=== PATIENT | male | born 1990 | race Caucasian/White ===

== ENCOUNTER 2024-12-13 10:26 | Emergency (ER) | payer MEDICAID ==
[~2024-12-13] VITALS: Ht 172.7 cm; Wt 60.1 kg
[2024-12-13 10:32] VITALS: TEMP 97.6
[2024-12-13 11:00] LABS: MEAN PLATELET VOLUME 6.9 FL (7.4-10.4); RED CELL DISTRIBUTION WIDTH 13.8 % (11.5-14.5)
[2024-12-13 11:17] LABS: CREATININE 0.76 MG/DL (0.60-1.10); TOTAL CARBON DIOXIDE 31.1 MMOL/L (24-32); eCRCL 119 ML/MIN; eGFR > 90 ML/MIN
[2024-12-13 13:00] LABS: LEUKOCYTE ESTERASE ,URINE NEGATIVE (Neg); NITRITES, URINE NEGATIVE (Neg); OCCULT BLOOD,URINE NEGATIVE (Neg)
[2024-12-13 13:01] LABS: UA COLLECTION TYPE CLN CATCH MIDSTREAM
--- NOTE | 2024-12-13 13:18 | Physician Documentation ---
History of Present Illness ~ Chief Complaint: Rectal Pain Stated Complaint: ABCESS Time Seen by MD: 12:29 Mode of Arrival: POV HPI 34-year-old male presents to the ED with concerns of over a perirectal abscess. He states he had it drained in an urgent care today however they were concerned by the smell that he may have stool in the abscess. They wanted him to come to the ER to be evaluated for sepsis and a perirectal abscess. Patient is otherwise healthy. Day of Onset: Dec 13, 2024 Medication Reconciliation Allergies: Coded Allergies: No Known Allergies (Unverified , 12/13/24) Review of Systems All Other Systems at this time: Reviewed and Negative ROS As stated above in the HPI, otherwise all systems are reviewed and negative. Physical Exam Vital Signs: Temperature: 97.6, Source: Temporal, Heart Rate: 83, Respiratory Rate: 18, BP: 151/64, Pulse Oximetry: 98, Weight: 60.100 Physical Exam General: Alert, no apparent distress. Extremities: Normal range of motion, no deformity. Notable abscess it has been draining in the right perineal region Neurologic: Oriented x4. Psychiatric: Normal mood and affect. Skin: Normal color, warm and dry. No edema, no ecchymosis. Procedures Procedures I performed additional I and D of the perirectal abscess. As there was no packing in a was not clear if the loculation occurred at the prior I and D ID loculated there was notable blood drainage however I did not make note of any further purulent discharge. A pack both incisions with quarter-inch packing patient tolerated procedure well. Ultrasound Date: Dec 13, 2024 Progress Results/Orders Results/Orders Orders - MARCUS LUQUE CODER Ct Abdomen Pelvis (12/13/24 13:47) Laceration/I&D Tray Set Up (12/13/24 ) Completed Orders - MARCUS LUQUE CODER Ct Abdomen Pelvis (12/13/24 13:47) Iohexol 300mg/Ml 100ml Inj. (Omnipaque-3 (12/13/24 13:30) Lidocaine 1% W/Epi 1:100,000 (Xylocaine (12/13/24 14:30) Vital Signs 12/13/24 12/13/24 12/13/24 10:32 12:58 15:48 Temp 97.6 Pulse 83 67 67 Resp 18 18 20 B/P (MAP) 151/64 112/80 (91) 119/86 (97) Pulse Ox 98 95 96 O2 Flow Rate 0 0 Laboratory Tests Test 12/13/24 10:54 12/13/24 12:49 White Blood Count 12.3 H Red Blood Count 4.77 Hemoglobin 14.4 Hematocrit 43.0 Mean Corpuscular Volume 90.2 Mean Corpuscular Hemoglobin 30.3 Mean Corpuscular Hemoglobin Concent 33.6 Red Cell Distribution Width 13.8 Platelet Count 245 Mean Platelet Volume 6.9 L Neutrophils (%) (Auto) 77.7 H Lymphocytes (%) (Auto) 13.3 L Monocytes (%) (Auto) 7.6 Eosinophils (%) (Auto) 1.0 Basophils (%) (Auto) 0.4 Neutrophils # (Auto) 9.6 H Lymphocytes # (Auto) 1.6 Monocytes # (Auto) 0.9 Eosinophils # (Auto) 0.1 Basophils # (Auto) 0.0 CBC Comment Sodium Level 138 Potassium Level 4.3 Chloride Level 100 Carbon Dioxide Level 31.1 Anion Gap 7 L Blood Urea Nitrogen 17 Creatinine 0.76 Estimated GFR/1.73 m2 > 90 BUN/Creatinine Ratio 22.4 H Glucose Level 117 H Lactic Acid Level 0.8 Calcium Level 8.7 Albumin 3.7 Procalcitonin < 0.05 Chemistry Comments Urine Specimen Description Cln catch midstream Urine Color Straw Urine Clarity Clear Urine pH 6.5 Urine Specific [place] <=1.005 Urine Protein Negative Urine Glucose (UA) Negative Urine Ketones Negative Urine Occult Blood Negative Urine Nitrite Negative Urine Bilirubin Negative Urine Urobilinogen 0.2 Urine Leukocyte Esterase Negative Urine Culture Indicated Not ind Volume Urine Centrifuged 10 ml Urine Comment Microbiology Date/Time Source Procedure Growth Status 12/13/24 10:58 Blood Arm Left Blood Culture - Preliminary NEGATIVE (LESS THAN 24 HOURS) Resulted Medical Decision Making Additional information obtaine: old records, N/A Findings This patient tolerated the 2nd I and D well I felt it prudent to pack the abscess for ongoing drainage. He will continue taking antibiotics and follow up accordingly Diff Dx GI Bleed:Consideration: Unlikely: AE fistula, Angiodysplasia, Bleeding diathesis, Blood loss anemia, Carcinoma, Diverticulosis, Diverticulitis, Esophageal varicies, Esophagitis, Gastritis, Gastroenteritis, Inflammatory BD, Luana-Merida syndrome, Meckel's diverticulum, PUD, Other Diff Dx Pain:Considerations: Include: AAA, Angina/NE, Aortic dissection, Appendicitis, Bowel obstruction, Cholangitis, Cholecystitis, Cholelithasis, Constipation, Diverticular disease, Esophageal rupture, Esophagitis, Gastritis, Gastroenteritis, GI hemorrhage, Hepatitis, Hernia, Inflammatory BD, Ischemic bowel, Mass, Pancreatitis, Porphyria, PUD, Testicular torsion, Trauma, intraabdominal, Urinary obstruction, Urinary tract infection, Urolithiasis, Other Diff Dx N/V/D:Considerations: Unlikely: Appendicitis, Bowel obstruction, Dehydration, DKA, Diarrhea - bacterial, Diarrhea - parasitic, Diarrhea - viral, Diverticulitis, Diverticulosis, Drug toxicity, Electrolyte imbalance, Food poisoning, Gastroenteritis, GE reflux, GI bleed, Hepatitis, Hernia, Hypovolemia, Hypotension, Inflammatory BD, Impaction, Malnutrition, Pancreatitis, PUD, Renal failure, Urinary obstruction, UTI, Urolithiasis, Other Diff Dx Rectal:Considerations: Include: Fissure, Fistula, Foreign body, Impaction, Perirectal abscess, Prostatitis, Rectal prolapse, Subcutaneous abscess, Thrombosed hemorrhoid, Ulcer, UTI, Other Departure Disposition: 01 HOME / SELF CARE / HOMELESS Impression: Primary Impression: Abscess of rectum Condition: Stable Discharge Instructions: Abscess, Care After Additional Instructions: Your best to keep the area clean and dry you may pull the packing out in two days. Continue taking the prescribed antibiotics you received from the range urea Referrals: UNKNOWN,UNKNOWN (PCP) Education Educated: Patient Educated regarding: diagnosis Signature Scribe Signature: f Attestation: Scribed for Marcus Luque Engine Dispatcher by Marcus Tomas NP . 12/13/24 13:18 MARCUS LUQUE NP Dec 13, 2024 13:18
[2024-12-13] MEDS ORDERED: iohexol 300mg/ml 100ml inj. ONE (13:30)
--- NOTE | 2024-12-13 14:16 | RADIOLOGY REPORT ---
EXAM: CT CT ABDOMEN PELVIS W/ IV CONTRAST HISTORY: asuncion-rectal abscess COMPARISON: None TECHNIQUE: Helical CT images of the abdomen and pelvis were performed with 100 mL Omnipaque 300 IV contrast. Sagittal and coronal reformatted images were obtained. This CT exam was performed using 1 or more of the following dose reduction techniques: Automated exposure control, adjustment of the mA and/or kv according to patient size, or the use of iterative reconstruction techniques. Radiation Dose Information: CT Dose: CTDI volume is 6.5 mGy. Dose-length product is 134.46 mGy*cm FINDINGS: CT abdomen: There are gas-filled pneumatoceles in the lower lobes. The heart is not enlarged. The liver, spleen, gallbladder, pancreas, kidneys, and adrenal glands are unremarkable. No abdominal aortic aneurysm or dissection. CT pelvis: No abnormal bowel dilatation or free air. There is trace free fluid in the pelvis, which is abnormal for a male. There is fecal retention throughout the colon. The appendix is not dilated. The urinary bladder is unremarkable. The prostate is mildly enlarged. There is subcutaneous abscess in the left medial gluteal region just distal to the anus measuring 3.5 cm cephalocaudal x 1.8 cm transverse x 2.8 cm AP (image 119, series 2; image 57, series 601), containing a small amount of gas centrally. IMPRESSION: 1. 3.5 cm left perianal abscess as detailed above. 2. Mild prostatic enlargement. As there is trace free fluid in the pelvis, consider prostatitis. 3. Fecal retention in the colon suggestive of constipation. 4. No evidence of bowel obstruction, acute appendicitis, or other acute process in the abdomen or pelvis.
[2024-12-13] MEDS: LIDOcaine 1% W/epiNEPHrine 1:100,000 20ml vial SQ ONE (15:26)
[2024-12-13 15:48] VITALS: BP 119/86; PULSE 67; RESP 20; O2SAT 96
[2024-12-15] MEDS ORDERED: SULF1TAB49 PO (01:33)
== END 2024-12-13 16:05 | disposition home or self-care (01) ==
LOC: ER 10:27
DX: K61.1 Rectal abscess (principal)
CPT/HCPCS: 36415; 46040; 74177; 80048; 81003; 83605; 84145; 85025; 87040; 99285; Q9967; A6212